=== PATIENT | male | born 1980 | race Caucasian/White ===

== ENCOUNTER 2024-04-03 08:14 | Emergency (ER) | payer SELFPAY ==
[2024-04-03 08:23] VITALS: BP 153/102
--- NOTE | 2024-04-03 09:48 | ED.GENMED ---
History of Present Illness
General
Chief Complaint: Anxiety
Time Seen by Provider: 04/03/24 09:11
History of Present Illness
History of Present Illness:
44-year-old male presents to the emergency department for evaluation of anxiety and sleeplessness. Admits to anxiety secondary to job and financial reasons. Denies any SI or HI, no AH or VH. Denies any illicit substance use. Has tried THC as
well as melatonin and [id number] sleep aids with no relief. Has not slept consistently in several nights. He is looking for some help with his sleeplessness. Does not feel that inpatient mental health treatment will benefit him.
Review of Systems
Review of Systems
Allergies reviewed?: Yes
All Other Systems: ROS reviewed and negative except as documented in HPI and ROS
Phy Exam
Physical Exam
Physical Exam:
GEN: Well appearing, NAD, WDWN
HEENT: Oral mucosa moist, no scleral icterus
Cardiac: Regular rate
Lung: No respiratory distress, no tachypnea
MSK: No gross deformity or injuries
Skin: Good color, no pallor or jaundice, no rashes
Neuro: AO x3, moves all extremities freely
Psych: Calm, flat affect, somewhat tremulous
Course
Orders/Labs/Results
Orders:
Orders
04/03/24 09:48
Crisis Consult Urgent
Reason for Consult: anxiety
Comment: outpatient resources
Vital Signs
Initial and Last Documented VS:
Initial Vital Signs
Temp Pulse Resp BP Pulse Ox
98.2 F 95 16 153/102 98
04/03/24 08:23 04/03/24 08:23 04/03/24 08:23 04/03/24 08:23 04/03/24 08:23
Last Documented Vital Signs
Temp Pulse Resp BP Pulse Ox
98.2 F 77 18 150/94 98
04/03/24 08:23 04/03/24 11:16 04/03/24 11:16 04/03/24 11:16 04/03/24 11:16
MDM/Problems Addressed
MDM/Problems Addressed:
Patient seen by crisis and given outpatient resources, will prescribe trazodone for sleep purposes. No SI or HI that would warrant inpatient hospitalization
*Critical Care Note
Total Time (30-74mins, 75-104mins- exclusive of procedures): Not Applicable
ED Attending Note
-
Portions of this chart may have been created with voice recognition software.� Occasional wrong word or��sound alike� substitutions may have occurred due to the inherent limitations of voice recognition software.
Discharge Plan
Departure
Patient Disposition: Home (Routine Discharge)
Date of Disposition: 04/03/24
Time of Disposition: 11:09
Patient with high blood pressure during this ER visit?: No
Discharge Problem:
Anxiety
Instructions: Anxiety, Adult (DC)
Prescriptions:
New
trazodone 50 mg tablet
50 - 100 mg PO HS Qty: 20 0RF
Referrals:
UNKNOWN - PT DOES,NOT KNOW [Family Provider] -
Interventions
Interventions:
*Risk Screen - Suicide Last Done: 04/03/24 08:23
*General Assessment Last Done: 04/03/24 10:13
*Neglect/Abuse Screening Last Done: 04/03/24 08:23
ED- Fall Risk Assessment Last Done: 04/03/24 11:16
*ED COVID-19 Vaccine History Last Done: 04/03/24 10:12
*Nursing Disposition Last Done: 04/03/24 11:17
ED-Psychological Assessment Last Done: 04/03/24 11:16
Discharge Date and Time
Discharge Date/Time: 04/03/24 11:17
Print Language: MALIAN
[2024-04-03 11:16] VITALS: BP 150/94
== END 2024-04-03 11:17 | disposition home or self-care (01) ==
LOC: EMR 08:14
PROVIDERS: EMERGENCY PHYSICIAN Student in an Organized Health Care Education/Training Program
DX: F41.9 Anxiety disorder, unspecified (principal); G47.00 Insomnia, unspecified
CPT/HCPCS: 99283